=== PATIENT | male | born 1975 | race Caucasian/White ===

== ENCOUNTER 2016-08-23 10:27 | Day surgery (SDC) | payer OTHER ==
[2016-08-20 16:25] VITALS: Ht 182.9 cm; Wt 101.0 kg
[2016-08-23] VITALS (8 sets, daily range): BP systolic 103–125; BP diastolic 59–78; PULSE 58–68; RESP 14–22
[~2016-08-23] VITALS: Ht 182.9 cm; Wt 101.0 kg
[2016-08-23] MEDS ORDERED: RISP4TAB38 PO (11:10)
[2016-08-23] MEDS ORDERED: CEFAZOLIN 2 GM/50 ML (PMX) 50 ML IVPB ONE (12:30)
[2016-08-23] MEDS ORDERED: SOD CHLORIDE 0.9% 1,000 ML IV ONE (12:30)
[2016-08-23] MEDS ORDERED: LIDOCAINE 2% (SDV) 5 ML INJ ONE (14:11)
[2016-08-23] MEDS ORDERED: MIDAZOLAM 1 MG/ML 2 ML INJ ONE (14:12)
[2016-08-23] MEDS ORDERED: PROPOFOL 20 ML ONE (14:12)
[2016-08-23] MEDS ORDERED: CEFAZOLIN 1 GM INJ ONE (14:24)
[2016-08-23] MEDS ORDERED: DEXAMETHASONE 4 MG/ML 1 ML INJ ONE (14:24)
[2016-08-23] MEDS ORDERED: ONDANSETRON 4 MG INJ ONE ×2 (14:24→15:30)
[2016-08-23] MEDS ORDERED: FENTAnyl 50 MCG/ML VIAL ONE (14:24)
[2016-08-23] MEDS ORDERED: BUPIVACAINE 0.25% (MPF) 10 ML 10 ML VIAL INJ ONE (14:34)
[2016-08-23] MEDS ORDERED: ROPIVACAINE 0.2% 20 ML VIAL ONE (14:57)
--- NOTE | 2016-08-23 15:17 | OPR ---
Date/Time of Note Date/Time of Note DATE: 08/23/16 TIME: 15:04 Operative Report Procedure Date: Aug 23, 2016 Preoperative Diagnosis left inguinal hernia Postoperative Diagnosis incarcerated left inguinal hernia Operation Performed 1. open left incarcerated inguinal hernia repair with medium size ultrapro hernia system mesh 2. left ilioinguinal nerve block Surgeon: Placido JJ Indications This is a 40-year-old male with an incarcerated left inguinal hernia. He requires surgical repair. Risks alternatives benefits and percent were discussed the patient patient's best understanding consents to the operation. Procedure Description Patient is taken to the OR and prepped and draped in usual sterile fashion. Surgical timeout performed IV antibiotics given. Left inguinal oblique incision is made with a 10 blade dissection cautery was carried down to the external oblique fascia. The external oblique fascia is opened with a 15 blade. This incision is extended medially inferiorly lateral superiorly. Cord structures identified and retracted with a Liberty drain. Indirect hernia is identified and reduced. This portion of the Ultram for hernia system mesh was used to secure the hernia space by fixation to the inguinal ligament. A running 0 Prolene was used from the pubic tubercle along the shelving edge of the inguinal ligament. Superiorly the this portion was secured to the internal oblique with interrupted 3-0 Vicryl. Onlay mesh is secured in similar fashion with a running 0 Prolene from the pubic tubercle along the shelving edge of the inguinal ligament. Strep to created and reapproximated around the cord structures to recreate the inguinal ring with interrupted 0 Prolene. Onlay mesh is secured to the internal ring with interrupted 3-0 Vicryl. Externally fascia is closed with a running 3-0 Vicryl. Jax's was closed with interrupted 3-0 Vicryl. Skin is closed using skin paulo. Left ilioinguinal nerve block is performed by identifying a position 2 cm medial and 2 cm inferior to the ASIS using a fanning motion local anesthesia is injected. Dry dressings are applied. Placido JJ Aug 23, 2016 15:14
[2016-08-23] MEDS ORDERED: HYDROmorphONE (0.2 MG/ML) 10ML SYG IV ONE (15:29)
[2016-08-23] MEDS ORDERED: FENTAnyl 50 MCG/ML VIAL IV PRN ×2 (15:30)
[2016-08-23] MEDS ORDERED: PROCHLORPERAZINE 10 MG INJ IV PRN (15:30)
[2016-08-23] MEDS ORDERED: MEPERIDINE 25 MG INJ IV PRN (15:30)
[2016-08-23] MEDS ORDERED: HYDROCODONE/APAP (5/325) TAB PO ONE (15:30)
[2016-08-23] MEDS ORDERED: DIPHENHYDRAMINE 50 MG INJ IV PRN (15:30)
[2016-08-23] MEDS ORDERED: ONDANSETRON 4 MG INJ IV PRN (15:30)
[2016-08-23] MEDS ORDERED: HYDROmorphONE (0.2 MG/ML) 10ML SYG IV PRN (15:30)
[2016-08-23] MEDS: HYDROmorphONE (0.2 MG/ML) 10ML SYG IV PRN ×3 (15:33→15:45)
== END 2016-08-23 16:45 | disposition home or self-care (01) ==
LOC: SDS 10:27 → EDBD 15:00 → SDS 16:45
PROVIDERS: ATTEND Surgery
DX: K40.30 Unilateral inguinal hernia, with obstruction, without gangrene, not specified as recurrent (principal)
CPT/HCPCS: 49507; C1781; J0690; J1100; J1170; J2250; J2405; J2795; J3010; Z7512; Z7610